=== PATIENT | male | born 1975 | race Two or more races ===

== ENCOUNTER 2019-05-20 17:08 | Emergency (ER) | payer MEDICAID ==
[~2019-05-20] VITALS: Ht 167.6 cm; Wt 72.6 kg
[2019-05-20] MEDS ORDERED: MORPHINE SULFATE 4 MG/1 ML DISP.SYRIN IM ONE (17:30)
[2019-05-20] MEDS ORDERED: MORPHINE SULFATE 4 MG/1 ML DISP.SYRIN ONE (17:43)
[2019-05-20 18:01] VITALS: BP 128/83
--- NOTE | 2019-05-20 18:02 | NUR ---
pt discharged home per MD order. All D/C instructions reviewed and pt verbalized understanding. Pt instructed not to drive.
== END 2019-05-20 18:02 | disposition home or self-care (01) ==
LOC: ER 17:11
DX: M54.5 Low back pain (principal); M25.552 Pain in left hip; V49.49XA Driver injured in collision with other motor vehicles in traffic accident, initial encounter; Y93.89 Activity, other specified; Y92.89 Other specified places as the place of occurrence of the external cause; Y99.8 Other external cause status
CPT/HCPCS: 73502; 96372; 99283; J2270; A4663